=== PATIENT | female | born 1995 | race Caucasian/White ===

== ENCOUNTER 2025-08-30 18:34 | Emergency (ER) | payer BC ==
[~2025-08-30] VITALS: Ht 160 cm; Wt 55.8 kg
[2025-08-30] MEDS ORDERED: dexaMETHasone SOD PHOSPHATE 1 ML ONE (19:21)
[2025-08-30] MEDS ORDERED: KETOROLAC TROMETHAMINE 15 MG/ML VIAL ONE (19:21)
[2025-08-30] MEDS: IV NS 0.9% 1,000 ML BAG IV ONE (19:36)
[2025-08-30] MEDS: KETOROLAC TROMETHAMINE 15 MG/ML VIAL IV ONE (19:36)
[2025-08-30] MEDS: dexaMETHasone SOD PHOSPHATE 10 MG/ML VIAL IV ONE (19:36)
[2025-08-30] MEDS ORDERED: LORAZEPAM INJ 2 MG/ML VIAL ONE (20:02)
[2025-08-30] MEDS: LORAZEPAM INJ 2 MG/ML VIAL IV ONE (20:03)
[2025-08-30] MEDS ORDERED: HYDR-3972 PO (20:39)
[2025-08-30] MEDS ORDERED: ONDA4TAB5 PO (20:39)
[2025-08-30] MEDS ORDERED: METH4TAB17 PO (20:39)
[2025-08-30] MEDS ORDERED: IBUP-1490 PO (20:39)
[2025-08-30 20:48] VITALS: BP 112/68; TEMP 98.2; O2SAT 99
== END 2025-08-30 20:48 | disposition home or self-care (01) ==
LOC: ER 18:50
DX: M54.50 Low back pain, unspecified (principal); M54.2 Cervicalgia; Z91.013 Allergy to seafood; Z97.5 Presence of (intrauterine) contraceptive device; Z60.2 Problems related to living alone
CPT/HCPCS: 99284; 96374; 96375; 96361; 84703; J1885; J2060; J1100; J7030